=== PATIENT | female | born 1975 | race African-American/Black ===

== ENCOUNTER 2021-01-29 08:21 | Emergency (ER) | payer OTHER, SELFPAY ==
[2021-01-29] MEDS ORDERED: Ondansetron PF 4 MG/2 ML Vial ONE (09:02)
[2021-01-29 09:39] LABS: Hemoglobin 13.6 g/dL (12.0-16.0); Mean Corpuscular HGB CONC 32.7 g/dL (32.0-36.0); Mean Corpuscular Hemoglobin 27.3 pg (27.0-31.0); Mean Corpuscular Volume 83.4 fL (78.0-98.0); Mean Platelet Volume 7.5 fL (7.4-10.4); Platelet Count 185 thou/uL (130-400); RBC Distribution Width 12.5 % (11.5-14.5); Red Blood Cell (RBC) Count 4.97 mill/uL (4.20-5.40); White Blood Cell (WBC) Count 5.5 thou/uL (4.8-10.8)
[2021-01-29 09:57] LABS: ALT (SGPT) 11 U/L (8-55); AST (SGOT) 19 U/L (5-34); Albumin 3.7 g/dL (3.5-5.0); Alkaline Phosphatase 53 U/L (40-110); Anion Gap 12 mmol/L (10-20); BUN (Urea Nitrogen) 11 mg/dL (7.0-18.7); Bilirubin, Total 0.3 mg/dL (0.2-1.2); Calc. Creatinine Clearance 0 mL/min (70-130); Calcium 8.3 mg/dL (7.8-10.44); Carbon Dioxide 19 mmol/L (22-29); Chloride 106 mmol/L (98-107); Globulin 3.6 g/dL (2.4-3.5); Glucose 106 mg/dL (70-105); Lipase 32 U/L (8-78); Potassium 4.1 mmol/L (3.5-5.1); Protein, Total 7.3 g/dL (6.0-8.3); Sodium 133 mmol/L (136-145)
[2021-01-29 10:15] LABS: Band 7 % (5-11); Lymphocytes 27 % (21-51); MDiff Complete? YES; Monocytes 6 % (0-10); Neutrophil 60 % (42-75); Platelet Morphology Comment Appears Adequate; RBC Morphology Normal
[2021-01-29 10:34] LABS: Bilirubin Negative (Negative); Blood, Urine Small (Negative); Glucose, Urine (Dipstick) Negative (Negative); Ketone, Urine Negative (Negative); Leukocyte Moderate (Negative); Nitrite Negative (Negative); Protein, Urine (Dipstick) Negative (Neg-Trace); Urobilinogen 0.2 mg/dL (Less than 2)
[2021-01-29 10:36] LABS: Clarity Slightly Cloudy (Clear); Specific Gravity, Urine 1.026 (1.002-1.036)
[2021-01-29 10:42] LABS: Bacteria/HPF 2+ HPF (None Seen); Trichomonas/HPF 1+ HPF (None Seen)
[2021-01-29] MEDS ORDERED: metroNIDAZOLE 250 MG TAB ONE (11:00)
== END 2021-01-29 13:35 | disposition home or self-care (01) ==
LOC: ERS 08:21
DX: A59.9 Trichomoniasis, unspecified (principal); R11.0 Nausea
CPT/HCPCS: 71045; 80053; 81003; 81015; 83605; 83690; 84484; 85025; 93005; 96374; J2405

== ENCOUNTER 2021-01-30 09:10 | Inpatient (IN) | payer OTHER ==
[2021-01-30] MEDS ORDERED: Ondansetron PF 4 MG/2 ML Vial ONE ×2 (10:43→18:08)
[2021-01-30 11:56] LABS: #Lymphocytes 0.9 thou/uL (1.20-3.40); #Monocytes 0.3 thou/uL (0.11-0.59); #Neutrophils 4.8 thou/uL (1.40-6.50); %Eosinophils 0.2 % (0.0-10.0); %Lymphocytes 15.2 % (21.0-51.0); %Monocytes 4.4 % (0.0-10.0); %Neutrophils 80.3 % (42.0-75.0); Hemoglobin 14.1 g/dL (12.0-16.0); Mean Corpuscular HGB CONC 31.5 g/dL (32.0-36.0); Mean Corpuscular Hemoglobin 26.1 pg (27.0-31.0); Mean Corpuscular Volume 82.6 fL (78.0-98.0); Mean Platelet Volume 7.4 fL (7.4-10.4); Platelet Count 204 thou/uL (130-400); RBC Distribution Width 12.5 % (11.5-14.5); Red Blood Cell (RBC) Count 5.39 mill/uL (4.20-5.40); White Blood Cell (WBC) Count 5.9 thou/uL (4.8-10.8)
[2021-01-30 12:23] LABS: ALT (SGPT) 14 U/L (8-55); AST (SGOT) 27 U/L (5-34); Albumin 4.2 g/dL (3.5-5.0); Alkaline Phosphatase 59 U/L (40-110); Anion Gap 21 mmol/L (10-20); BUN (Urea Nitrogen) 8 mg/dL (7.0-18.7); Bilirubin, Total 0.4 mg/dL (0.2-1.2); CK (CPK) 134 U/L (29-168); Calc. Creatinine Clearance 0 mL/min (70-130); Calcium 8.7 mg/dL (7.8-10.44); Carbon Dioxide 15 mmol/L (22-29); Chloride 105 mmol/L (98-107); Globulin 3.7 g/dL (2.4-3.5); Glucose 121 mg/dL (70-105); Potassium 4.9 mmol/L (3.5-5.1); Protein, Total 7.9 g/dL (6.0-8.3); Sodium 136 mmol/L (136-145)
[2021-01-30 12:25] LABS: SARS-CoV-2 NAA Rapid Test DETECTED (NotDetected)
[2021-01-30] MEDS ORDERED: Dexamethasone 10 MG/ML VIAL ONE (13:36)
[2021-01-30] MEDS ORDERED: Aspirin Chewable 81 MG TAB ONE (13:36)
[2021-01-30] MEDS ORDERED: Bisacodyl 5 MG TAB PO PRN (14:43)
[2021-01-30 16:30] LABS: Troponin I Less than 0.010 ng/mL (< 0.028)
[2021-01-30 18:07] LABS: Troponin I Less than 0.010 ng/mL (< 0.028)
[2021-01-30] MEDS: Ondansetron ODT 4 MG TAB PO PRN (18:19)
[2021-01-30 20:39] VITALS: BMI 42.8
[2021-01-31] MEDS: NIFEdipine XL 60 MG TAB PO SCH ×3 (02:09→20:09)
[2021-01-31] MEDS: Ondansetron ODT 4 MG TAB PO PRN (02:12)
[2021-01-31] MEDS ORDERED: NIFEdipine XL 60 MG TAB PO SCH (02:45)
[2021-01-31] MEDS ORDERED: Lorazepam 2 MG/ML VIAL SLOW IVP SCH (05:30)
[2021-01-31] MEDS: Lorazepam 2 MG/ML VIAL SLOW IVP PRN (06:22)
[2021-01-31] MEDS: Dexamethasone 4 MG TAB PO SCH (08:36)
[2021-01-31] MEDS ORDERED: Enoxaparin Sodium 40 MG/0.4 ML SYRINGE SC SCH (09:00)
[2021-01-31] MEDS ORDERED: guaiFENesin ER 600 MG TAB PO SCH (09:15)
[2021-01-31] MEDS ORDERED: Iopamidol 370 76% 100 ML VIAL ONE (10:13)
[2021-01-31 11:43] LABS: ALT (SGPT) 15 U/L (8-55); AST (SGOT) 24 U/L (5-34); Alkaline Phosphatase 54 U/L (40-110); Anion Gap 17 mmol/L (10-20); BUN (Urea Nitrogen) 10 mg/dL (7.0-18.7); Bilirubin, Total 0.5 mg/dL (0.2-1.2); Calc. Creatinine Clearance 93 mL/min (70-130); Calcium 8.6 mg/dL (7.8-10.44); Carbon Dioxide 16 mmol/L (22-29); Cardiac Risk 7.8 (Less than 4.5); Chloride 101 mmol/L (98-107); Cholesterol 259 mg/dl (< 200 Desired); Globulin 3.8 g/dL (2.4-3.5); Glucose 121 mg/dL (70-105); HDL Cholesterol 33 mg/dL (>60 Neg Risk); LDL Cholesterol, Calculated 197 mg/dL; Potassium 4.1 mmol/L (3.5-5.1); Protein, Total 7.8 g/dL (6.0-8.3); Sodium 130 mmol/L (136-145); Triglycerides 144 mg/dL (Less than 150)
[2021-01-31 13:02] LABS: Hemoglobin 14.2 g/dL (12.0-16.0); Mean Corpuscular HGB CONC 33.5 g/dL (32.0-36.0); Mean Corpuscular Hemoglobin 27.5 pg (27.0-31.0); Mean Corpuscular Volume 82.2 fL (78.0-98.0); Mean Platelet Volume 7.3 fL (7.4-10.4); Platelet Count 201 thou/uL (130-400); RBC Distribution Width 12.3 % (11.5-14.5); Red Blood Cell (RBC) Count 5.14 mill/uL (4.20-5.40); White Blood Cell (WBC) Count 7.3 thou/uL (4.8-10.8)
[2021-01-31 13:33] LABS: Band 49 % (5-11); Lymphocytes 7 % (21-51); MDiff Complete? YES; Monocytes 1 % (0-10); Neutrophil 39 % (42-75); Platelet Morphology Comment Appears Adequate; RBC Morphology Normal; Reactive Lymphocytes 4 % (0-10)
[2021-01-31] MEDS: Acetaminophen 325 MG TAB PO PRN (16:33)
[2021-01-31 17:26] LABS: BHCG - Serum Negative (NEGATIVE); Pregs Control Background? CLEAR/WHITE (CLR/WHITE); Pregs Control Bar Appear? YES (CONTROL BAR)
[2021-01-31] MEDS: Enoxaparin Sodium 40 MG/0.4 ML SYRINGE SC SCH (20:09)
[2021-01-31] MEDS: guaiFENesin ER 600 MG TAB PO SCH (20:10)
[2021-02-01] MEDS: Ondansetron ODT 4 MG TAB PO PRN ×2 (00:07→17:05)
[2021-02-01 05:21] LABS: Hemoglobin 14.4 g/dL (12.0-16.0); Mean Corpuscular HGB CONC 33.1 g/dL (32.0-36.0); Mean Corpuscular Hemoglobin 27.7 pg (27.0-31.0); Mean Corpuscular Volume 83.8 fL (78.0-98.0); Mean Platelet Volume 7.7 fL (7.4-10.4); Platelet Count 198 thou/uL (130-400); RBC Distribution Width 12.4 % (11.5-14.5); Red Blood Cell (RBC) Count 5.21 mill/uL (4.20-5.40); White Blood Cell (WBC) Count 5.4 thou/uL (4.8-10.8)
[2021-02-01 05:49] LABS: Anion Gap 16 mmol/L (10-20); BUN (Urea Nitrogen) 16 mg/dL (7.0-18.7); Calc. Creatinine Clearance 83 mL/min (70-130); Calcium 8.9 mg/dL (7.8-10.44); Carbon Dioxide 18 mmol/L (22-29); Chloride 101 mmol/L (98-107); Glucose 97 mg/dL (70-105); Potassium 4.3 mmol/L (3.5-5.1); Sodium 131 mmol/L (136-145)
[2021-02-01 05:56] LABS: Band 8 % (5-11); Lymphocytes 32 % (21-51); MDiff Complete? YES; Monocytes 5 % (0-10); Neutrophil 55 % (42-75)
[2021-02-01] MEDS: Enoxaparin Sodium 40 MG/0.4 ML SYRINGE SC SCH ×2 (09:17→20:08)
[2021-02-01] MEDS: Dexamethasone 4 MG TAB PO SCH (09:17)
[2021-02-01] MEDS: NIFEdipine XL 60 MG TAB PO SCH ×2 (09:17→20:08)
[2021-02-01] MEDS: guaiFENesin ER 600 MG TAB PO SCH ×2 (09:18→20:08)
[2021-02-01] MEDS ORDERED: Iopamidol-370 76% 500 ML 1 ML ONE (10:35)
[2021-02-01] MEDS ORDERED: Benzonatate 100 MG CAP PO SCH (11:30)
[2021-02-01] MEDS: Benzonatate 100 MG CAP PO SCH ×2 (15:03→20:08)
[2021-02-01] MEDS ORDERED: Zinc Sulfate 220 MG CAP PO SCH (16:30)
[2021-02-01] MEDS ORDERED: Ascorbic Acid 500 mg Chewable Tablet PO SCH (16:30)
[2021-02-01] MEDS ORDERED: Melatonin 3 MG TAB PO PRN (18:05)
[2021-02-01] MEDS: Lorazepam 2 MG/ML VIAL SLOW IVP PRN (20:07)
[2021-02-01] MEDS: Acetaminophen 325 MG TAB PO PRN (23:59)
[2021-02-02 05:47] LABS: Chloride 99 mmol/L (98-107); Potassium 3.9 mmol/L (3.5-5.1); Sodium 128 mmol/L (136-145)
[2021-02-02 05:48] LABS: Calcium 8.2 mg/dL (7.8-10.44); Glucose 123 mg/dL (70-105)
[2021-02-02 05:50] LABS: Carbon Dioxide 18 mmol/L (22-29)
[2021-02-02 05:52] LABS: BUN (Urea Nitrogen) 15 mg/dL (7.0-18.7); Calc. Creatinine Clearance 87 mL/min (70-130)
[2021-02-02 05:53] LABS: Anion Gap 15 mmol/L (10-20)
[2021-02-02] MEDS: Lorazepam 2 MG/ML VIAL SLOW IVP PRN ×2 (06:08→20:43)
[2021-02-02] MEDS: Acetaminophen 325 MG TAB PO PRN (06:15)
[2021-02-02 08:06] LABS: Band 7 % (5-11); Eosinophils 1 % (0-10); Hemoglobin 13.7 g/dL (12.0-16.0); Lymphocytes 27 % (21-51); MDiff Complete? YES; Mean Corpuscular Hemoglobin 27.5 pg (27.0-31.0); Mean Corpuscular Volume 83.3 fL (78.0-98.0); Mean Platelet Volume 7.6 fL (7.4-10.4); Monocytes 2 % (0-10); Neutrophil 63 % (42-75); Platelet Count 197 thou/uL (130-400); RBC Distribution Width 12.2 % (11.5-14.5); Red Blood Cell (RBC) Count 4.99 mill/uL (4.20-5.40); Vacuoles SLIGHT; White Blood Cell (WBC) Count 7.1 thou/uL (4.8-10.8)
[2021-02-02] MEDS: Ascorbic Acid 500 mg Chewable Tablet PO SCH (09:45)
[2021-02-02] MEDS: Zinc Sulfate 220 MG CAP PO SCH (09:45)
[2021-02-02] MEDS: guaiFENesin ER 600 MG TAB PO SCH ×2 (09:45→20:32)
[2021-02-02] MEDS: Enoxaparin Sodium 40 MG/0.4 ML SYRINGE SC SCH ×2 (09:45→20:32)
[2021-02-02] MEDS: NIFEdipine XL 60 MG TAB PO SCH (09:45)
[2021-02-02] MEDS: Dexamethasone 4 MG TAB PO SCH (09:46)
[2021-02-02] MEDS: Benzonatate 100 MG CAP PO SCH ×3 (09:46→20:32)
[2021-02-02] MEDS ORDERED: hydrALAZINE 20 MG/ML VIAL SLOW IVP PRN (10:57)
[2021-02-02] MEDS ORDERED: Sodium Chloride 0.65% Nasal 44 ML BOT EA NARE PRN (10:57)
[2021-02-02] MEDS ORDERED: Cepastat Lozenges 1 LOZ PO PRN (10:57)
[2021-02-02] MEDS ORDERED: Loratadine 10 MG TAB PO PRN (10:57)
[2021-02-02] MEDS ORDERED: Senokot S 8.6-50 MG TAB PO PRN (10:57)
[2021-02-02] MEDS ORDERED: Temazepam 15 MG CAP PO PRN (10:57)
[2021-02-02] MEDS ORDERED: Ondansetron PF 4 MG/2 ML Vial IVP PRN (10:57)
[2021-02-02] MEDS ORDERED: Loperamide HCl 2 MG CAP PO PRN (10:57)
[2021-02-02] MEDS ORDERED: HYDROcodone/Acetaminophen 5/325 mg Tablet PO PRN (10:57)
[2021-02-02] MEDS: Simethicone Chewable 80 MG TAB PO PRN (12:33)
[2021-02-02] MEDS ORDERED: GUAIFENESIN SF SOLN 200 MG/10 ML UDCUP PO PRN (18:06)
[2021-02-03] MEDS: Simethicone Chewable 80 MG TAB PO PRN (04:47)
[2021-02-03] MEDS: NIFEdipine XL 60 MG TAB PO SCH ×2 (07:29)
[2021-02-03] MEDS: Zinc Sulfate 220 MG CAP PO SCH (07:29)
[2021-02-03] MEDS: Benzonatate 100 MG CAP PO SCH ×3 (07:29→20:51)
[2021-02-03] MEDS: Ascorbic Acid 500 mg Chewable Tablet PO SCH (07:29)
[2021-02-03] MEDS: Enoxaparin Sodium 40 MG/0.4 ML SYRINGE SC SCH ×2 (07:29→20:50)
[2021-02-03] MEDS: Acetaminophen 325 MG TAB PO PRN (07:30)
[2021-02-03] MEDS: Dexamethasone 4 MG TAB PO SCH (07:31)
[2021-02-03] MEDS: guaiFENesin ER 600 MG TAB PO SCH ×2 (07:31→20:50)
[2021-02-03 10:35] LABS: #Lymphocytes 0.8 thou/uL (1.20-3.40); #Monocytes 0.4 thou/uL (0.11-0.59); #Neutrophils 5.6 thou/uL (1.40-6.50); %Basophils 0.4 % (0.0-1.0); %Lymphocytes 11.9 % (21.0-51.0); %Monocytes 5.9 % (0.0-10.0); %Neutrophils 81.8 % (42.0-75.0); Hemoglobin 14.3 g/dL (12.0-16.0); Mean Corpuscular HGB CONC 34.2 g/dL (32.0-36.0); Mean Corpuscular Volume 81.9 fL (78.0-98.0); Mean Platelet Volume 6.9 fL (7.4-10.4); Platelet Count 232 thou/uL (130-400); Red Blood Cell (RBC) Count 5.11 mill/uL (4.20-5.40); White Blood Cell (WBC) Count 6.9 thou/uL (4.8-10.8)
[2021-02-03 10:54] LABS: Anion Gap 14 mmol/L (10-20); BUN (Urea Nitrogen) 13 mg/dL (7.0-18.7); CRP (Inflammatory) 7.45 mg/dL (= or < 0.5); Calc. Creatinine Clearance 97 mL/min (70-130); Calcium 8.7 mg/dL (7.8-10.44); Carbon Dioxide 24 mmol/L (22-29); Chloride 95 mmol/L (98-107); Glucose 144 mg/dL (70-105); Potassium 3.5 mmol/L (3.5-5.1); Sodium 129 mmol/L (136-145)
[2021-02-03] MEDS: Calcium Carbonate 500 MG ChewTAB PO PRN (12:38)
[2021-02-03] MEDS: Atorvastatin Calcium 40 MG TAB PO SCH (20:51)
[2021-02-03] MEDS: Lorazepam 2 MG/ML VIAL SLOW IVP PRN (20:55)
[2021-02-04 06:47] LABS: Troponin I Less than 0.010 ng/mL (< 0.028)
[2021-02-04] MEDS: Ascorbic Acid 500 mg Chewable Tablet PO SCH (10:45)
[2021-02-04] MEDS: Zinc Sulfate 220 MG CAP PO SCH (10:45)
[2021-02-04] MEDS: Benzonatate 100 MG CAP PO SCH ×3 (10:45→21:05)
[2021-02-04] MEDS: Aspirin 81 mg Enteric Coated Tablet PO SCH (10:45)
[2021-02-04] MEDS: Dexamethasone 4 MG TAB PO SCH (10:45)
[2021-02-04] MEDS: guaiFENesin ER 600 MG TAB PO SCH ×2 (10:45→21:05)
[2021-02-04] MEDS: Enoxaparin Sodium 40 MG/0.4 ML SYRINGE SC SCH ×2 (10:46→21:05)
[2021-02-04] MEDS: NIFEdipine XL 60 MG TAB PO SCH (10:47)
[2021-02-04] MEDS: Atorvastatin Calcium 40 MG TAB PO SCH (21:05)
[2021-02-05 05:26] LABS: Anion Gap 16 mmol/L (10-20); BUN (Urea Nitrogen) 12 mg/dL (7.0-18.7); Calc. Creatinine Clearance 106 mL/min (70-130); Calcium 8.9 mg/dL (7.8-10.44); Carbon Dioxide 24 mmol/L (22-29); Chloride 97 mmol/L (98-107); Glucose 89 mg/dL (70-105); Potassium 3.7 mmol/L (3.5-5.1); Sodium 133 mmol/L (136-145)
[2021-02-05] MEDS: Ascorbic Acid 500 mg Chewable Tablet PO SCH (07:47)
[2021-02-05] MEDS: Enoxaparin Sodium 40 MG/0.4 ML SYRINGE SC SCH (07:47)
[2021-02-05] MEDS: Zinc Sulfate 220 MG CAP PO SCH (07:47)
[2021-02-05] MEDS: NIFEdipine XL 60 MG TAB PO SCH ×2 (07:48→08:14)
[2021-02-05] MEDS: Benzonatate 100 MG CAP PO SCH (07:48)
[2021-02-05] MEDS: guaiFENesin ER 600 MG TAB PO SCH (07:48)
[2021-02-05] MEDS: Aspirin 81 mg Enteric Coated Tablet PO SCH (07:48)
[2021-02-05] MEDS: Dexamethasone 4 MG TAB PO SCH (07:48)
[2021-02-05] MEDS: Calcium Carbonate 500 MG ChewTAB PO PRN (09:49)
[2021-02-05 12:07] VITALS: BP 129/77; TEMP 97.3
== END 2021-02-05 13:25 | disposition home or self-care (01) | DRG 178 ==
LOC: ERS 09:10 → ERHOLD 14:26 → OBSVTOIN 14:33 → 2SW 01-31 01:46
PROVIDERS: ADMIT Psychiatry & Neurology Neurology; ATTEND Internal Medicine
PROC: 8E0ZXY6 Isolation (ICD-10-PCS; principal; 2021-01-30)
DX: U07.1 COVID-19 (principal); G45.9 Transient cerebral ischemic attack, unspecified; Z68.41 Body mass index [BMI] 40.0-44.9, adult; N17.9 Acute kidney failure, unspecified; E87.1 Hypo-osmolality and hyponatremia; I16.0 Hypertensive urgency; E66.01 Morbid (severe) obesity due to excess calories; N18.2 Chronic kidney disease, stage 2 (mild); I12.9 Hypertensive chronic kidney disease with stage 1 through stage 4 chronic kidney disease, or unspecified chronic kidney disease; Z98.51 Tubal ligation status
CPT/HCPCS: 0240U; 36415; 70450; 70498; 70551; 71045; 71260; 80048; 80053; 80061; 82164; 82550; 82728; 83036; 84484; 84703; 85025; 85379; 86140; 93005; 93010; 93880; 96374; 96375; J1100; J1650; J2060; J2405; J8540; Q0162; Q9967

== ENCOUNTER 2025-07-17 10:31 | Emergency (ER) | payer OTHER | END 2025-07-17 12:06 | disposition home or self-care (01) | LOC: ERS 10:31 | DX: H10.9 Unspecified conjunctivitis (principal); I10 Essential (primary) hypertension; Z79.899 Other long term (current) drug therapy | CPT/HCPCS: 99282 ==